=== PATIENT | male | born 1995 | race African-American/Black ===

== ENCOUNTER 2019-08-23 10:03 | Emergency (ER) | payer MEDICAID ==
[~2019-08-23] VITALS: Ht 172.7 cm; Wt 90.0 kg
[2019-08-23 11:21] VITALS: BP 152/90
== END 2019-08-23 11:22 | disposition home or self-care (01) ==
LOC: ER 10:49
DX: Z04.1 Encounter for examination and observation following transport accident (principal); V49.88XA Car occupant (driver) (passenger) injured in other specified transport accidents, initial encounter; Y93.89 Activity, other specified; Y92.89 Other specified places as the place of occurrence of the external cause; Y99.8 Other external cause status
CPT/HCPCS: 99282